=== PATIENT | male | born 1950 | race Caucasian/White ===

== ENCOUNTER 2016-09-11 17:40 | Emergency (ER) | payer OTHER ==
[2016-09-11] MEDS ORDERED: Sodium Chloride 0.9% 10 ML Syringe FLUSH PRN (18:04)
[2016-09-11] MEDS ORDERED: Sodium Chloride 0.9% 2,000 ML IV ONE (18:05)
[2016-09-11] MEDS ORDERED: Ondansetron 4 MG/2 ML SDV IVPUSH ONE (18:06)
[2016-09-11] MEDS ORDERED: Morphine 4 MG/ML Syringe IVPUSH ONE (18:06)
[2016-09-11] MEDS ORDERED: Nitroglycerin 0.4 MG Tab.SL SL PRN (18:21)
[2016-09-11] MEDS ORDERED: Nitroglycerin 0.4 MG Tab.SL ONE (18:22)
[2016-09-11] MEDS ORDERED: Heparin Sodium 5,000 Units/ML Vial IVPUSH ONE (18:28)
[2016-09-11] MEDS ORDERED: Nitroglycerin/D5W 25 MG/250 ML BOTTLE IV SCH (18:30)
[2016-09-11] MEDS ORDERED: Aspirin 81 MG Tab.Chew PO ONE (18:31)
[2016-09-11] MEDS ORDERED: Clopidogrel 75 MG Tab PO ONE (18:31)
[2016-09-11] MEDS ORDERED: Albuterol/Ipratropium 3.0-0.5 MG/3 ML Neb Soln ONE (18:59)
--- NOTE | 2016-09-11 19:16 | EDM.PDOC ---
ED HPI GENERAL MEDICAL PROBLEM - General Chief Complaint: Flank Pain Stated Complaint: LEFT FLANK PAIN, NAUSEA,VOMITING Time Seen by Provider: 09/11/16 18:30 Source of Information: Reports: Patient, Family History Limitations: Reports: Respiratory Distress - History of Present Illness INITIAL COMMENTS - FREE TEXT/NARRATIVE: Joshua is a 66 year old male with a hx of GERD, kidney stones, and HTN who present to the ED today with his with c/o bilateral flank pain, chest pain and shortness of breath. Patient reports that his flank pain started yesterday but then resolved, returned today with current symptoms. Patient denies any cardiac hx. He denies any hx of chronic lung disease, he is not a smoker. Patient denies any abdominal pain, does c/o nausea, no vomiting or diarrhea. Patient denies any known hx of aortic aneurysm. Onset: Today, Sudden Bilateral Flank Pain Score (Numeric/FACES): 10 - Related Data Allergies Allergy/AdvReac Type Severity Reaction Status Date / Time No Known Allergies Allergy Verified 09/11/16 18:20 Home Meds: Home Meds Diclofenac Sodium [Voltaren] 1 tab PO DAILY 09/11/16 [History] Esomeprazole [NexIUM] 1 tab PO DAILY 09/11/16 [History] amLODIPine [Norvasc] 1 tab PO DAILY 09/11/16 [History] Past Medical History HEENT History: Reports: Cataract, Hard of Hearing Cardiovascular History: Reports: Hypertension Gastrointestinal History: Reports: GERD Genitourinary History: Reports: Renal Calculus - Past Surgical History HEENT Surgical History: Reports: Cataract Surgery, Other (See Below) Other HEENT Surgeries/Procedures: cochlear implant GI Surgical History: Reports: Tommy Fundoplication ED ROS GENERAL - Review of Systems Review Of Systems: See Below Constitutional: Reports: Fever, Chills HEENT: Reports: No Symptoms Respiratory: Reports: Shortness of Breath Cardiovascular: Reports: Chest Pain GI/Abdominal: Reports: Nausea : Reports: Flank Pain Musculoskeletal: Reports: No Symptoms Skin: Reports: Pallor Neurological: Reports: No Symptoms Psychiatric: Reports: No Symptoms ED EXAM, GI/ABD - Physical Exam Exam: See Below Exam Limited By: Respiratory Distress General Appearance: Alert, Anxious, Severe Distress, Other (pale, diaphoretic, tachypneic, tachycardic) Ears: Hearing Loss, Other (Cochlear implant) Throat/Mouth: Normal Oropharynx Head: Atraumatic Neck: Supple, Non-Tender Respiratory/Chest: Decreased Breath Sounds, Other (poor inspiratory effort, diminished lungs with faint upper expiratory wheeze) GI/Abdominal: Normal Bowel Sounds, Soft (Male) Exam: Deferred Neurological: Alert, Oriented Skin Exam: Pallor Lymphatic: No Adenopathy EKG INTERPRETATION EKG Date: 09/11/16 Time: 18:15 Rhythm: Other (sinus tachycardia) Rate (Beats/Min): 138 High View: Normal P-Wave: Present QRS: Normal ST-T: Other (III and aVF) Comparison: NA - No Prior EKG EKG Interpretation Comments: Concerns for STEMI, ST elevated in Lead III and aVF. Reciprocal changes in V1 and V2 EKG repeated at 185, similar findings Reviewed with Dr. Astudillor Course - Vital Signs Text/Narrative:: Joshua is a 66 year old male with hx of kidney stones, HTN, arthritis and GERD who presents to the ED today with his with c/o bilateral flank pain and sob. Patient on arrival is in acute respiratory distress, he c/o midsternal chest pain, bilateral flank pain, and shortness of breath. Patient was initially hypoxic and tachypneic with room air saturation of 70%. Patient placed on non-rebreather at 10 liters. He is normotensive on arrival but significantly tachycardic with rate of 140. He has low grade fever of 100.4. Concerns for sepsis. Patient has no signficant medical hx. PIV established. 1814-EKG obtained, initially concerning for possible STEMI with ST elevation in leads III and aVF. Concerned at this time if patient is having demand ischemia from sepsis. 2 liters NS initiated. Patient given NTG for chest pain, no relief, 4 mg morphine with pain down to a 4/10. Patient given 60 mg Plavix 324 baby aspirin Heparin bolus, 4000 unit. Blood pressure soft 90/50, beta jesse held. During this time Officer was speaking with Dr. Violetta Holt, cardiology for transfer, patient accepted. RT was called for bipap, however, patient accepted for transfer and was kept on a non-rebreather. Repeat EKG done per cardiology request, relatively unchanged. Sent to Dr. Shipley for review. CXR possible large left infiltrate vs. cardiomegaly Patient left via EMS at 1908 in critical condition on non-rebreather, NTG drip sent with for medics to start, slowly given soft blood pressure. He remains tachycardic with rate in the 120's, currently states chest pain 2/10. Remains tachypneic with respiratory rate of 38. O2 saturation 94% on 10 liters. 1930-Labs returned, CBC returns with 3.9 WBC, platelet count low 90, creatinine elevated at 3.8. Lactic acid 8.3, initial troponin 0.045. Pro-BNP 7899. These results reported to Dr. Shipley. Last Recorded V/S: Last Vital Signs Temp 38 C 09/11/16 18:10 Pulse 124 H 09/11/16 19:08 Resp 33 H 09/11/16 19:08 BP 104/53 L 09/11/16 19:08 Pulse Ox 95 09/11/16 19:08 - Orders/Labs/Meds Orders: Active Orders 24 hr Category Date Time Status EKG Documentation Completion [RC] ASDIRECTED Care 09/11/16 18:08 Active EKG Documentation Completion [RC] ASDIRECTED Care 09/11/16 18:55 Active Peripheral IV Care [RC] . DIRECTED Care 09/11/16 18:04 Active RT Aerosol Therapy [RC] ASDIRECTED Care 09/11/16 19:37 Ordered Chest 1V Frontal [CR] Stat Exams 09/11/16 18:05 Taken CULTURE BLOOD [BC] Urgent Lab 09/11/16 18:10 Received CULTURE BLOOD [BC] Urgent Lab 09/11/16 18:20 Received URINALYSIS W/MICROSCOPIC [UA W/MICROSCOPIC] [URIN] Stat Lab 09/11/16 18:05 Uncollected Albuterol/Ipratropium [DuoNeb 3.0-0.5 MG/3 ML] Med 09/11/16 19:36 Once 3 ml NEB ONETIME ONE Nitroglycerin/D5W [Nitroglycerin 25 MG/D5W 250 ML] Med 09/11/16 18:30 Active 25 mg in 250 ml IV TITRATE Sodium Chloride 0.9% [Saline Flush] Med 09/11/16 18:04 Active 10 ml FLUSH ASDIRECTED PRN Blood Culture x2 Reflex Set [OM.PC] Urgent Oth 09/11/16 18:04 Ordered Peripheral IV Insertion Adult [OM.PC] Routine Oth 09/11/16 18:04 Ordered EKG 12 Lead [EK] Stat Ther 09/11/16 18:07 Ordered EKG 12 Lead [EK] Stat Ther 09/11/16 18:54 Ordered Medication Orders Nitroglycerin/Dextrose (Nitroglycerin 25 Mg/D5w 250 Ml) 25 mg in 250 mls @ 6 mls/hr IV TITRATE VIDA; 10 MCG/MIN PRN Reason: Protocol Last Admin: 09/11/16 18:50 Dose: 5 mcg/min, 3 mls/hr Sodium Chloride (Saline Flush) 10 ml FLUSH ASDIRECTED PRN PRN Reason: Keep Vein Open Labs: Laboratory Tests 09/11/16 09/11/16 09/11/16 Range/Units 18:10 18:10 18:10 WBC 3.9 L (4.5-11.0) K/uL RBC 4.90 (4.30-5.90) M/uL Hgb 14.7 (12.0-15.0) g/dL Hct 44.3 (40.0-54.0) % MCV 90 (80-98) fL MCH 30 (27-31) pg MCHC 33 (32-36) % Plt Count 90 L (150-400) K/uL Add Manual Diff Yes Neutrophils % (Manual) 59 (36-66) % Band Neutrophils % 19 H (5-11) % Lymphocytes % (Manual) 19 L (24-44) % Monocytes % (Manual) 3 (2-6) % Sodium 138 L (140-148) mmol/L Potassium 4.1 (3.6-5.2) mmol/L Chloride 100 (100-108) mmol/L Carbon Dioxide 22 (21-32) mmol/L Anion Gap 20.1 H (5.0-14.0) mmol/L BUN 32 H (7-18) mg/dL Creatinine 3.8 H* (0.8-1.3) mg/dL Est Cr Clr Drug Dosing 21.63 mL/min Estimated GFR (MDRD) 16 L (>60) Glucose 99 (74-106) mg/dL Lactic Acid 8.3 H (0.4-2.0) mmol/L Calcium 8.2 L (8.5-10.1) mg/dL Total Bilirubin 0.7 (0.2-1.0) mg/dL AST 29 (15-37) U/L ALT 25 (12-78) U/L Alkaline Phosphatase 251 H (46-116) U/L Troponin I (0.000-0.056) ng/mL Pkh-V-Glzyxhjjpom Pept (5-125) pg/mL Total Protein 7.1 (6.4-8.2) g/dL Albumin 3.3 L (3.4-5.0) g/dL Globulin 3.8 H (2.3-3.5) g/dL Albumin/Globulin Ratio 0.9 L (1.2-2.2) 09/11/16 09/11/16 Range/Units 18:10 18:46 WBC (4.5-11.0) K/uL RBC (4.30-5.90) M/uL Hgb (12.0-15.0) g/dL Hct (40.0-54.0) % MCV (80-98) fL MCH (27-31) pg MCHC (32-36) % Plt Count (150-400) K/uL Add Manual Diff Neutrophils % (Manual) (36-66) % Band Neutrophils % (5-11) % Lymphocytes % (Manual) (24-44) % Monocytes % (Manual) (2-6) % Sodium (140-148) mmol/L Potassium (3.6-5.2) mmol/L Chloride (100-108) mmol/L Carbon Dioxide (21-32) mmol/L Anion Gap (5.0-14.0) mmol/L BUN (7-18) mg/dL Creatinine (0.8-1.3) mg/dL Est Cr Clr Drug Dosing mL/min Estimated GFR (MDRD) (>60) Glucose (74-106) mg/dL Lactic Acid (0.4-2.0) mmol/L Calcium (8.5-10.1) mg/dL Total Bilirubin (0.2-1.0) mg/dL AST (15-37) U/L ALT (12-78) U/L Alkaline Phosphatase (46-116) U/L Troponin I 0.045 (0.000-0.056) ng/mL Csp-K-Unrdysophrr Pept 7899 H (5-125) pg/mL Total Protein (6.4-8.2) g/dL Albumin (3.4-5.0) g/dL Globulin (2.3-3.5) g/dL Albumin/Globulin Ratio (1.2-2.2) Meds: Medications Generic Name Dose Route Start Last Admin Trade Name Eladio PRN Reason Stop Dose Admin Nitroglycerin/Dextrose 25 mg in 250 mls @ 6 mls/hr 09/11/16 18:30 09/11/16 18 :50 Nitroglycerin 25 Mg/D5w 250 Ml IV 5 mcg/min TITRATE VIDA 3 mls/hr Protocol Administration 10 MCG/MIN Sodium Chloride 10 ml 09/11/16 18:04 Saline Flush FLUSH ASDIRECTED PRN Keep Vein Open Discontinued Medications Generic Name Dose Route Start Last Admin Trade Name Eladio PRN Reason Stop Dose Admin Albuterol/Ipratropium Confirm 09/11/16 18:59 Duoneb 3.0-0.5 Mg/3 Ml Administered 09/11/16 19:00 Dose 3 ml .ROUTE .STK-MED ONE Aspirin 324 mg 09/11/16 18:31 09/11/16 18:29 Aspirin PO 09/11/16 18:32 324 mg ONETIME ONE Administration Clopidogrel Bisulfate 600 mg 09/11/16 18:31 09/11/16 18:36 Plavix PO 09/11/16 18:32 600 mg ONETIME ONE Administration Heparin Sodium (Porcine) 4,000 units 09/11/16 18:28 09/11/16 18:39 Heparin Sodium IVPUSH 09/11/16 18:29 4,000 units .BOLUS ONE Administration Sodium Chloride 2,000 mls @ 2,000 mls/hr 09/11/16 18:05 09/11/16 18:06 Normal Saline IV 09/11/16 19:04 2,000 mls/hr .BOLUS ONE Administration Morphine Sulfate 4 mg 09/11/16 18:06 09/11/16 18:33 Morphine IVPUSH 09/11/16 18:07 4 mg ONETIME ONE Administration Nitroglycerin 0.4 mg 09/11/16 18:21 09/11/16 18:24 Nitrostat SL 09/11/16 18:32 0.4 mg Q5M PRN Administration Chest Pain Nitroglycerin Confirm 09/11/16 18:22 Nitrostat Administered 09/11/16 18:23 Dose 0.4 mg .ROUTE .STK-MED ONE Ondansetron HCl 4 mg 09/11/16 18:06 09/11/16 18:30 Zofran IVPUSH 09/11/16 18:07 4 mg ONETIME ONE Administration Departure - Departure Time of Disposition: 19:08 Disposition: DC/Tfer to [facility] Access [facility] Condition: Serious Clinical Impression: ST elevation Sepsis Qualifiers: Sepsis type: sepsis due to unspecified organism Qualified Code(s): A41.9 - Sepsis, unspecified organism - Discharge Information Referrals: PCP,None [Primary Care Provider] - Forms: ED Department Discharge - My Orders Last 24 Hours: My Active Orders 09/11/16 18:04 Peripheral IV Care [RC] . DIRECTED Sodium Chloride 0.9% [Saline Flush] 10 ml FLUSH ASDIRECTED PRN Blood Culture x2 Reflex Set [OM.PC] Urgent Peripheral IV Insertion Adult [OM.PC] Routine 09/11/16 18:05 Chest 1V Frontal [CR] Stat URINALYSIS W/MICROSCOPIC [UA W/MICROSCOPIC] [URIN] Stat 09/11/16 18:07 EKG 12 Lead [EK] Stat 09/11/16 18:08 EKG Documentation Completion [RC] ASDIRECTED 09/11/16 18:10 CULTURE BLOOD [BC] Urgent 09/11/16 18:20 CULTURE BLOOD [BC] Urgent 09/11/16 18:30 Nitroglycerin/D5W [Nitroglycerin 25 MG/D5W 250 ML] 25 mg in 250 ml IV TITRATE 09/11/16 18:54 EKG 12 Lead [EK] Stat 09/11/16 18:55 EKG Documentation Completion [RC] ASDIRECTED 09/11/16 19:36 Albuterol/Ipratropium [DuoNeb 3.0-0.5 MG/3 ML] 3 ml NEB ONETIME ONE 09/11/16 19:37 RT Aerosol Therapy [RC] ASDIRECTED - Assessment/Plan Last 24 Hours: My Active Orders 09/11/16 18:04 Peripheral IV Care [RC] . DIRECTED Sodium Chloride 0.9% [Saline Flush] 10 ml FLUSH ASDIRECTED PRN Blood Culture x2 Reflex Set [OM.PC] Urgent Peripheral IV Insertion Adult [OM.PC] Routine 09/11/16 18:05 Chest 1V Frontal [CR] Stat URINALYSIS W/MICROSCOPIC [UA W/MICROSCOPIC] [URIN] Stat 09/11/16 18:07 EKG 12 Lead [EK] Stat 09/11/16 18:08 EKG Documentation Completion [RC] ASDIRECTED 09/11/16 18:10 CULTURE BLOOD [BC] Urgent 09/11/16 18:20 CULTURE BLOOD [BC] Urgent 09/11/16 18:30 Nitroglycerin/D5W [Nitroglycerin 25 MG/D5W 250 ML] 25 mg in 250 ml IV TITRATE 09/11/16 18:54 EKG 12 Lead [EK] Stat 09/11/16 18:55 EKG Documentation Completion [RC] ASDIRECTED 09/11/16 19:36 Albuterol/Ipratropium [DuoNeb 3.0-0.5 MG/3 ML] 3 ml NEB ONETIME ONE 09/11/16 19:37 RT Aerosol Therapy [RC] ASDIRECTED
[2016-09-11] MEDS ORDERED: Albuterol/Ipratropium 3.0-0.5 MG/3 ML Neb Soln NEB ONE (19:36)
[2016-09-11 19:37] VITALS: BP 91/56
--- NOTE | 2016-09-13 09:15 | CR ---
Mild-moderate cardiomegaly. Pulmonary vasculature upper limits of normal. No definite focal consolid ation.
== END 2016-09-11 19:08 | disposition critical access hospital (66) ==
LOC: JP.ED 17:40
DX: A41.9 Sepsis, unspecified organism (principal); R94.31 Abnormal electrocardiogram [ECG] [EKG]; I10 Essential (primary) hypertension; K21.9 Gastro-esophageal reflux disease without esophagitis; Z98.49 Cataract extraction status, unspecified eye; Z98.890 Other specified postprocedural states; Z79.899 Other long term (current) drug therapy; Z87.442 Personal history of urinary calculi
CPT/HCPCS: 36415; 71010; 80053; 83605; 83880; 84484; 85025; 87040; 93005; 96361; 96374; 96375; 99285; A9270; J1644; J2270; J2405; J7040; J7620; 87077; 87186; 93010